=== PATIENT | female | born 1965 | race Caucasian/White ===

== ENCOUNTER 2017-08-24 21:40 | Emergency (ER) | payer OTHER ==
[~2017-08-24] VITALS: Ht 165.1 cm; Wt 81.6 kg
--- NOTE | 2017-08-24 22:00 | NUR ---
PT BIBRA FROM THE STREETS TO ER BED 16. STRONG ETOH SMELL, NOTED R EYE BRUISING. NO OTHER OBVIOUS TRAUMA NOTED. GOWNED AND PLACED ON MONITOR. STABLE VITALS. AWAITING MD ROBLEDO.
--- NOTE | 2017-08-24 22:01 | NUR ---
DR MULLIGAN AT BEDSIDE FOR EVAL.
--- NOTE | 2017-08-24 22:14 | NUR ---
Note nianorm in EDM - 08/24/17 at 2304 by MALCOLM PT MEIR FROM THE STREETS TO ER BED 16. STRONG ETOH SMELL, NOTED R EYE BRUISING. NO OTHER OBVIOUS TRAUMA NOTED. GOWNED AND PLACED ON MONITOR. STABLE VITALS. AWAITING MD ROBLEDO.
--- NOTE | 2017-08-24 22:28 | NUR ---
LITIGATION ATTORNEY ASSOCIATE AT BEDSIDE FOR BLOOD DRAW.
[2017-08-24 22:34] LABS: BASOPHILS # (AUTO) 0.1 /CMM (0.0-0.2); BASOPHILS % (AUTO) 0.9 % (0.0-2.0); EOSINOPHILS % (AUTO) 0.5 % (0.0-6.0); HEMATOCRIT 44 % (33-45); HEMOGLOBIN 14.4 g/dL (11.5-14.8); LYMPHOCYTES # (AUTO) 2.1 /CMM (0.8-4.8); LYMPHOCYTES % (AUTO) 22.8 % (20.0-44.0); MEAN CORPUSCULAR HEMOGLOBIN 29 PG (26.0-33.0); MEAN CORPUSCULAR HGB CONC 33 g/dl (31.0-36.0); MEAN CORPUSCULAR VOLUME 90 fL (82-100); MONOCYTES # (AUTO) 0.4 /CMM (0.1-1.30); MONOCYTES % (AUTO) 4.1 % (2.0-12.0); NEUTROPHILS # (AUTO) 6.5 /CMM (1.8-8.9); NEUTROPHILS % (AUTO) 71.7 % (43.0-81.0); PLATELET COUNT (AUTO) 234 /CMM (150-450); RDW COEFFICIENT OF VARIATION 15.1 (11.5-15.0); RED BLOOD CELL COUNT(AUTO) 4.91 MIL/uL (4.0-5.2); WHITE BLOOD COUNT (AUTO) 9.1 K/uL (4.3-11.0)
[2017-08-24 22:48] LABS: CALCIUM, SERUM 8.8 mg/dL (8.5-10.1); CREATININE 0.5 mg/dL (0.6-1.3); POTASSIUM 3.4 mmol/L (3.5-5.1)
[2017-08-24 22:50] LABS: PROTHROMBIN TIME 10.4 SECS (9.5-12.7)
--- NOTE | 2017-08-24 23:40 | NUR ---
REPORT TO CHARGE NURSE NATALYA FOR MAIKOL.
--- NOTE | 2017-08-25 01:32 | NUR ---
MATTY (SISTER) [phone]. CALL SISTER WHEN PT AWAKE.
--- NOTE | 2017-08-25 02:19 | NUR ---
PATIENT IS RESTING IN ER BED, NAD NOTED, SKIN WARM AND DRY. 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 VITAL SIGNS UPDATED.
[2017-08-25] MEDS ORDERED: POTASSIUM CHLORIDE 20 MEQ TAB.PRT.SR PO ONE ×2 (04:56→05:00)
--- NOTE | 2017-08-25 05:37 | NUR ---
PT REQUESTED THAT ER STAFF NOT CALL SISTER.
[2017-08-25 05:54] VITALS: BP 110/72
--- NOTE | 2017-08-25 05:55 | NUR ---
Patient discharged to home in stable condition. Pt instructed staff not to call sister for ride home; will walk to bus station. Written and verbal after care instructions given. Patient verbalizes understanding of instruction. Pt ambulatory with a steady gait. VSS, NAD noted on DC. Denies complaint on DC.
== END 2017-08-25 05:57 | disposition home or self-care (01) ==
LOC: ER 21:41
DX: F10.129 Alcohol abuse with intoxication, unspecified (principal); E86.0 Dehydration; E87.6 Hypokalemia; R79.1 Abnormal coagulation profile; G93.40 Encephalopathy, unspecified
CPT/HCPCS: 36415; 80048; 82962; 85025; 85730; 99284; A4606; Z7610

== ENCOUNTER 2023-06-04 19:20 | Emergency (ER) | payer OTHER ==
[~2023-06-04] VITALS: Ht 165.1 cm; Wt 78.5 kg
[2023-06-04] MEDS ORDERED: IOHEXOL-350 100 ML VIAL IV ONE (19:24)
[2023-06-04] MEDS ORDERED: CT SWABBABLE VALVE TRANS SET 1 EA INFUS.SET MC ONE (19:25)
[2023-06-04] MEDS ORDERED: IV NS 0.9% 250 ML IV ONE (19:25)
[2023-06-04] MEDS ORDERED: IV NS 0.9% 500 ML BAG IV ONE (19:30)
[2023-06-04 19:46] LABS: BASOPHILS # (AUTO) 0.1 K/uL (0.0-0.2); BASOPHILS % (AUTO) 0.8 % (0.0-2.0); EOSINOPHILS # (AUTO) 0.1 K/uL (0.0-0.7); EOSINOPHILS % (AUTO) 0.7 % (0.0-6.0); HEMATOCRIT 43 % (33-45); HEMOGLOBIN 13.6 g/dL (11.5-14.8); LYMPHOCYTES % (AUTO) 47.4 % (20.0-44.0); MEAN CORPUSCULAR HEMOGLOBIN 25 PG (26.0-33.0); MEAN CORPUSCULAR HGB CONC 32 g/dl (31.0-36.0); MEAN CORPUSCULAR VOLUME 80 fL (82-100); MONOCYTES # (AUTO) 0.4 K/uL (0.1-1.30); MONOCYTES % (AUTO) 3.8 % (2.0-12.0); NEUTROPHILS % (AUTO) 47.3 % (43.0-81.0); PLATELET COUNT (AUTO) 264 K/uL (150-450); RED BLOOD CELL COUNT(AUTO) 5.34 MIL/uL (4.0-5.2); RED CELL DISTRIBUTION WIDTH 18.2 % (11.5-15.0); WHITE BLOOD COUNT (AUTO) 10.5 K/uL (4.3-11.0)
[2023-06-04 19:56] LABS: INR 1.04 (0.91-1.10); PARTIAL THROMBOPLASTIN TIME 25.3 SEC (24.3-34.3); PROTHROMBIN TIME 10.9 SECS (9.2-11.1)
[2023-06-04 19:57] LABS: CALCIUM, SERUM 8.9 mg/dL (8.5-10.1); CARBON DIOXIDE 21 mmol/L (21-32); CHLORIDE 106 mmol/L (98-107); CREATININE 0.7 mg/dL (0.6-1.3); GLUCOSE 106 mg/dL (74-106); POTASSIUM 4.1 mmol/L (3.5-5.1); SODIUM SERUM 145 mmol/L (136-145); UREA NITROGEN, BLOOD 10 mg/dL (7-18)
[2023-06-04 20:03] LABS: ALANINE AMINOTRANSFERASE 20 U/L (12-78); ALBUMIN 3.5 g/dL (3.4-5.0); ALKALINE PHOSPHATASE 107 U/L (46-116); ASPARTATE AMINOTRANSFERASE 27 U/L (15-37); BILIRUBIN,DIRECT 0.1 mg/dL (0.0-0.2); BILIRUBIN,TOTAL 0.1 mg/dL (0.2-1.0); TOTAL PROTEIN, SERUM 8.4 g/dL (6.4-8.2)
[2023-06-04] MEDS ORDERED: LORAZEPAM INJ 2 MG/ML VIAL ONE (20:11)
[2023-06-04] MEDS ORDERED: diphenhydrAMINE HCL 50 MG/ML VIAL ONE (20:16)
[2023-06-04] MEDS ORDERED: HALOPERIDOL LACTATE INJ 5 MG/ML VIAL ONE (20:17)
[2023-06-04] MEDS ORDERED: LORAZEPAM INJ 2 MG/ML VIAL IM ONE (20:30)
[2023-06-04] MEDS ORDERED: HALOPERIDOL LACTATE INJ 5 MG/ML VIAL IM ONE (20:30)
[2023-06-04] MEDS ORDERED: diphenhydrAMINE HCL 50 MG/ML VIAL IM ONE (20:30)
[2023-06-04] MEDS ORDERED: ASPIRIN 325 MG TABLET PO ONE (22:30)
[2023-06-05] MEDS ORDERED: ASPIRIN 325 MG TABLET ONE (06:15)
[2023-06-05 07:39] VITALS: BP 129/75; TEMP 98.6; O2SAT 95
== END 2023-06-05 07:40 | disposition short-term general hospital (02) ==
LOC: ER 19:22
DX: G45.9 Transient cerebral ischemic attack, unspecified (principal)
CPT/HCPCS: 99285; 96372 ×2; 96360; 93005; 71045; 70450; 70498; 70496; 85025; 80048; 80076; 36415; 84484; 85730; 82962; 87426; 80320; J2060; J1200; J1630; J7050; J7040 ×2; Q9967; C9803; G0480